=== PATIENT | male | born 1940 | race Caucasian/White ===

== ENCOUNTER 2020-04-12 08:19 | Outpatient (NON) | payer MEDICARE, OTHER, SELFPAY ==
[2020-04-13 13:10] LABS: SARS-CoV-2 RNA PCR Positive
== END 2020-04-12 08:20 ==
LOC: ANHCOVIDDT 08:21
PROVIDERS: PCP Family Medicine; Visit Provider Nurse Practitioner Family
DX: U07.1 COVID-19 (principal)
CPT/HCPCS: 87635; C9803; U0003

== ENCOUNTER 2020-08-11 14:43 | Outpatient (CLI) | payer MEDICARE, OTHER, SELFPAY | END 2020-08-11 14:44 | disposition home or self-care (01) | LOC: ANHCOVIDVC 14:43 | PROVIDERS: PCP Family Medicine | DX: Z23 Encounter for immunization (principal) | CPT/HCPCS: 0001A; 91300 ==

== ENCOUNTER 2020-09-01 14:32 | Outpatient (CLI) | payer MEDICARE, OTHER, SELFPAY | END 2020-09-01 14:33 | disposition home or self-care (01) | LOC: ANHCOVIDVC 14:32 | PROVIDERS: PCP Family Medicine | DX: Z23 Encounter for immunization (principal) | CPT/HCPCS: 0002A; 91300 ==

== ENCOUNTER 2021-08-11 10:03 | Emergency (ER) | payer MEDICARE, OTHER, SELFPAY ==
--- NOTE | ~2021-08-11 | XR_ITS ---
XR knee RT min 4V 08/11/2021 10:37 Indication: Right knee pain after recent fall Procedure: 4 views right knee Comparison: No prior studies for comparison. Findings: There is a right total knee arthroplasty. Prosthesis well seated. There are ossific densiti es anterior to the tibial component of the prosthesis seen on lateral view, suspicious for acute avul libby fracture. Large joint effusion. Impression: 1: Possible acute avulsion fracture anterior aspect of the tibia anterior to the prosthesis. 2: Large joint effusion. Reviewed, dictated and finalized at location A. /BAK[employer] ASSOCIATE Impression: 1: Possible acute avulsion fracture anterior aspect of the tibia anterior to th e prosthesis. 2: Large joint effusion.
[2021-08-11 10:18] VITALS: BP 129/67; PULSE 62; RESP 16; TEMP 36.8; O2SAT 100
[2021-08-11 10:22] VITALS: BP 129/67; PULSE 62; RESP 16; TEMP 36.8; O2SAT 100
--- NOTE | 2021-08-11 10:47 | ED.LOWEXIN ---
HPI - Extremity Injury (Lower) General Chief Complaint: Extremity Injury, Lower Stated Complaint: Right knee pain Time Seen by Provider: 08/11/21 10:47 Source: patient Mode of arrival: ambulatory Limitations: no limitations History of Present Illness HPI Narrative: 80 yo M presents with pain to R knee. hx of bilateral knee replacement. yesterday slipped on ice and fell straight down onto R knee . Using crutches from home. Called orthopedic office and not able to see him for several weeks. All systems reviewed and negative except as noted above. Related Data Allergies Allergy/AdvReac Type Severity Reaction Status Date / Time No Known Allergies Allergy Verified 08/11/21 10:21 Review of Systems Review of Systems: CONSTITUTIONAL: Denies fever, chills, or sweats. EYES: Denies visual changes, redness, or discharge. ENT: Denies rhinorrhea, congestion, sore throat, or otalgia. CARDIOVASCULAR: Denies chest pain, palpitations, or edema. RESPIRATORY: Denies cough or dyspnea. GASTROINTESTINAL: Denies abdominal pain, nausea, vomiting, or diarrhea. GENITOURINARY: Denies dysuria or hematuria. SKIN: Denies rash or itching. MUSCULOSKELETAL: Denies back pain, joint pain, or myalgia. Reports right knee pain and swelling. NEUROLOGIC: Denies headache, numbness, or weakness. PSYCHIATRIC: Denies anxiety or depression. All other systems reviewed are negative, except as documented in HPI. PMFSH Comments At time of signature, agree with nursing past medical, surgical, social and family history. There is no relevant family history pertinent to the presenting complaint. Exam Narrative: GENERAL: This is a well-nourished, well-developed patient, in no apparent distress. HEAD: normocephalic, atraumatic. EYES: PERRL. Sclera clear/white. Vision is grossly intact. EARS: External ears normal, auditory canals clear and without drainage, TMs normal without perforation. Hearing grossly intact. NOSE: External nose normal with no obvious nasal discharge, nares without redness, no rhinorrhea. THROAT: Mucous membranes moist, posterior pharynx clear. NECK: Neck supple, non-tender without lymphadenopathy, masses or thyromegaly. CARDIOVASCULAR: Regular rate and rhythm without murmurs, gallops, or rubs. RESPIRATORY: Clear to auscultation. Breath sounds equal bilaterally. No wheezes, rales, or rhonchi. GASTROINTESTINAL: Abdomen soft, non-tender, nondistended. Bowel sounds are active. No hepato-splenomegaly, or palpable masses. No guarding. SKIN: warm, Dry, intact with no suspicious lesions or rash, good texture and turgor. NEURO: awake, alert, and oriented to person, place and time. There were no obvious focal neurologic abnormalities. EXTREMITIES: No calf tenderness. Negative Homans sign bilaterally. Swelling to right knee with effusion. Tenderness to anterior aspect. BACK: Nontender without deformity. No CVA tenderness. Course Course Level of Care: Express Care Visit Vital Signs Vital signs: Vital Signs Temperature 36.8 C 08/11/21 10:18 Pulse Rate 62 08/11/21 10:18 Respiratory Rate 16 08/11/21 10:18 Blood Pressure 129/67 08/11/21 10:18 Pulse Oximetry 100 08/11/21 10:18 Temperature 36.8 C 08/11/21 10:22 Pulse Rate 62 08/11/21 10:22 Respiratory Rate 16 08/11/21 10:22 Blood Pressure 129/67 08/11/21 10:22 Pulse Oximetry 100 08/11/21 10:22 MDM - Extremity Injury (Lower) MDM Narrative Medical decision making narrative: Patient is aware of diagnosis, understands and agrees to treatment plan. Anticipatory guidance given. Patient agrees to follow-up as directed and is aware of reasons to seek care at the emergency department. Portions of this record may have been created with voice recognition software knee immobilizer placed by RN. distal NV intact after application. pt reported pain improved with immobilizer. pt has crutches from home. referred to orthopedics. pt aware he needs to call and schedule an appt. given radiology dis
--- NOTE | 2021-08-11 11:59 | PC.NURSE ---
KNEE IMMOBILIZER APPLY TO RIGHT KNEE. PATIENT STATED RIGHT KNEE FELT STABLE WITH IMMOBILIZER APPLIED
== END 2021-08-11 11:15 | disposition home or self-care (01) ==
PROVIDERS: Emergency Provider Nurse Practitioner Family
DX: S82.001A Unspecified fracture of right patella, initial encounter for closed fracture (principal); W01.0XXA Fall on same level from slipping, tripping and stumbling without subsequent striking against object, initial encounter; M25.461 Effusion, right knee; I10 Essential (primary) hypertension
CPT/HCPCS: 73564; 99213; 99214; G0463; L1830

== ENCOUNTER 2022-01-12 12:04 | Outpatient (CLI) | payer MEDICARE, OTHER, SELFPAY ==
[2022-01-12 12:44] LABS: Alanine Aminotransferase 22 U/L (6-50); Albumin Level 4.4 g/dL (3.5-5.1); Alkaline Phosphatase 99 U/L (38-126); Anion Gap 8 mmol/L (8-16); Aspartate Amino Transferase 27 U/L (17-59); Bilirubin,Total 0.6 mg/dL (0.2-1.3); Blood Urea Nitrogen 23 mg/dL (9-20); Calcium 9.6 mg/dL (8.4-10.2); Carbon Dioxide 30 mmol/L (22-30); Chloride 101 mmol/L (98-107); Cholesterol 135 mg/dL (0-200); Estimated Glomerular Filt Rate > 60; Glucose 93 mg/dL (65-110); HDL Direct 54 mg/dL; Potassium 4.6 mmol/L (3.4-5.0); Sodium 139 mmol/L (137-145); Triglycerides 97 mg/dL (<150)
[2022-01-12 12:56] LABS: LDL Cholesterol Direct 55 mg/dL
== END 2022-01-12 12:05 | disposition home or self-care (01) ==
LOC: ANHLAB 12:10
PROVIDERS: PCP Family Medicine; Visit Provider Internal Medicine Cardiovascular Disease
DX: I10 Essential (primary) hypertension (principal); E78.2 Mixed hyperlipidemia
CPT/HCPCS: 36415; 80053; 80061

== ENCOUNTER 2022-08-04 08:30 | Outpatient (CLI) | payer MEDICARE, OTHER, SELFPAY ==
--- NOTE | 2022-08-30 08:28 | WPDSLEEPSTUD ---
Sleep Study Date of Study: 08/04/22 Ordering Provider: Reese Gómez MD Interpreting Physician: Megan Quiros MD Sleep Study Type: CPAP Titration Height: 1.88 m Weight: 126.552 kg Body Mass Index: 35.8 Neck Circumference (inches): 18.5 [place]: 9 Reason for Sleep Study Obstructive sleep apnea on CPAP 16 cm Sleep History Ad Medellin is an 81-year-old man with obstructive sleep apnea dating back to 07/01/2006 with a sleep study at [facility] showing an AHI of 25 with optimal pressure of 10 cm. His tells him that he quits breathing during his sleep. HE does not wake at night feeling short of breath or wake with heartburn, belching or coughing. He does not snore using PAP. He rarely has trouble sleeping when he has a cold. He rarely sweats excessively at night. He does not notice his heart pounding or beating excessively at night. He frequently falls asleep in the day, rarely involuntarily and rarely while driving. He does not have loss of muscle tone with strong emotion, and does not feel afraid to go to sleep. Rarely has nightmares or racing thoughts. Rarely feels sad or depressed. Occasionally has anxiety.. Frequently he notices parts of his body jerking. He occasionally kicks at night, and occasionally has achy uncomfortable feelings in his legs. Denies morning jaw pain. Rarely grinds his teeth at night. Occasionally has pain in the day, never has pain at night. He always wakes up feeling stiff in the morning. Normal bedtime is 10:30 pm, wakes once at night to go urinate, returns to sleep within 15 minutes. He wakes in the morning at 5:30 am. He takes naps, and a short nap can be refreshing. He feels better in the afternoon or evening compared to the morning. Habits: No tobacco. Caffeine: 3 perday. Uses alcohol, not daily. [facility] Past Medical History Medical History Benign localized prostatic hyperplasia with lower urinary tract symptoms (LUTS) BMI 34.0-34.9,adult Cellulitis Chronic venous insufficiency Cough Diastolic dysfunction Heart murmur Intention tremor Mixed hyperlipidemia Numbness and tingling in both hands RENATO (obstructive sleep apnea) Rhinitis Surgical History Surgical History History of appendectomy History of bilateral knee replacement Family History Family History Sibling Patient's brother is in good health Family history of malignant neoplasm of breast in first degree relative Breast cancer Father Acute myocardial infarction, Onset Age: 60 Mother Family history of Alzheimer's disease, Onset Age: 80 Acute myocardial infarction Social History Social History Smoking status: Never smoker Second hand tobacco smoke exposure: Yes Alcohol intake: current Substance use: never Substance use type: does not use Lack of Transportation: No Lack of Food: Never True Current Housing: I Have Housing Concerned About Future Housing: No Difficulty Paying Gas/Electric Bills: YES Difficulty Paying for Meds: No Currently Unemployed: No Education: Associate Degree Difficulty w/ Childcare or Family Care: No Living arrangements: with family Occupation/Education: retired Additional occupation/education comments: [employer] Gender identity (if verbalized by the patient): Male Medications Home Medications Medication Instructions Recorded Confirmed Type atorvastatin 40 mg tablet 40 mg PO DAILY 05/15/19 07/27/22 History amlodipine 5 mg-benazepril 20 mg 1 cap PO DAILY 07/23/21 07/27/22 History capsule aspirin 81 mg chewable tablet 81 mg PO DAILY 07/23/21 07/27/22 History (Juan M Chewable Low Dose Aspirin) magnesium oxide 200 mg PO DAILY 07/23/21 07/27/22 History mecobalam
[2022-09-01 17:13] VITALS: BMI 35.8
== END 2022-08-05 06:21 | disposition home or self-care (01) ==
LOC: ANHCSM 08:31
PROVIDERS: PCP Family Medicine; Visit Provider Internal Medicine Pulmonary Disease
DX: G47.33 Obstructive sleep apnea (adult) (pediatric) (principal)
CPT/HCPCS: 95811

== ENCOUNTER 2022-10-02 06:35 | Outpatient (CLI) | payer MEDICARE, OTHER, SELFPAY ==
[2022-10-02 06:55] LABS: Basophils Percent Auto 0.5 % (0.2-1.2); Eosinophils Absolute Auto 0.4 K/mm3 (0-0.3); Eosinophils Percent Auto 6.1 % (0-4.4); Hematocrit 40.9 % (42.0-52.0); Hemoglobin 13.4 g/dL (14.0-18.0); Immature Granulocyte Absolute 0.02 K/mm3 (0.00-0.031); Immature Granulocyte Percent A 0.3 % (0-0.5); Lymphocytes Absolute Auto 1.71 K/mm3 (0.9-3.2); Mean Corpuscular HGB Conc 32.8 g/dl (32-36); Mean Corpuscular Hemoglobin 28.3 pg (26-34); Mean Corpuscular Volume 86.3 fl (80-100); Mean Platelet Volume 9.8 fl (7.4-10.4); Monocytes Absolute Auto 0.5 K/mm3 (0.1-0.6); Monocytes Percent Auto 8.7 % (2.6-8.5); Neutrophils Absolute Auto 3.3 K/mm3 (1.3-6.7); Neutrophils Percent Auto 55.4 % (45.5-73.1); Platelet Count Result 248 k/mm3 (150-375); Red Blood Count 4.74 M/mm3 (4.6-6.20); Red Cell Distribution Width 13.5 % (11.5-14.5); White Blood Count 5.9 K/mm3 (4.5-10.0)
[2022-10-02 07:06] LABS: Alanine Aminotransferase 25 U/L (6-50); Albumin Level 4.1 g/dL (3.5-5.1); Alkaline Phosphatase 86 U/L (38-126); Anion Gap 2 mmol/L (8-16); Aspartate Amino Transferase 25 U/L (17-59); Bilirubin,Total 0.8 mg/dL (0.2-1.3); Blood Urea Nitrogen 23 mg/dL (9-20); Calcium 8.9 mg/dL (8.4-10.2); Carbon Dioxide 37 mmol/L (22-30); Chloride 103 mmol/L (98-107); Cholesterol 137 mg/dL (0-200); Estimated Glomerular Filt Rate > 60; Glucose 91 mg/dL (65-110); HDL Direct 48 mg/dL; Potassium 4.7 mmol/L (3.4-5.0); Sodium 142 mmol/L (137-145); Triglycerides 70 mg/dL (<150)
[2022-10-02 07:16] LABS: LDL Cholesterol Direct 66 mg/dL
== END 2022-10-02 06:36 | disposition home or self-care (01) ==
PROVIDERS: PCP Family Medicine; Visit Provider Family Medicine
DX: E78.2 Mixed hyperlipidemia (principal); I51.89 Other ill-defined heart diseases; Z13.220 Encounter for screening for lipoid disorders
CPT/HCPCS: 36415; 80053; 80061; 82248; 84443; 85025

== ENCOUNTER 2022-11-10 10:58 | Outpatient (CLI) | payer MEDICARE, OTHER, SELFPAY ==
--- NOTE | 2022-11-16 12:59 | WPDHOLTEREM ---
Holter/Event Monitor Holter/Event Monitor Date of procedure: 11/16/22 Holter/Event Procedure: 48 Hr Holter Monitor Diagnosis: Tachycardia Indications: Tachycardia Image/Tracing Quality: Adequate. Total analysis time is 47 hours and 59 minutes. Findin. Predominant rhythm is sinus rhythm with an average heart rate of 68bpm. The minimum heart rate was 40bpm, and the maximum heart rate was 133bpm. 2. No evidence of atrial fibrillation, pauses or heart block 3. PAC burden is 0.9%. 4. PVC burden is 2.4%. 5. There were 2 episodes of SVT. The longest episode consisted of 11 beats at a rate of 158bpm. The fastest run consisted of 7 beats at a rate of 160bpm. 6. There was 1 episode of non-sustained ventricular tachycardia consisting of 19 beats. 7. No patient reported symptoms.
== END 2022-11-10 10:59 | disposition home or self-care (01) ==
LOC: ANHCARD 10:59
PROVIDERS: PCP Family Medicine; Visit Provider Family Medicine
DX: I51.89 Other ill-defined heart diseases (principal); R00.0 Tachycardia, unspecified
CPT/HCPCS: 93225; 93226

== ENCOUNTER 2023-02-23 00:15 | Day surgery (SDC) | payer MEDICARE, OTHER, SELFPAY ==
[2023-02-23] VITALS (10 sets, daily range): BP systolic 110–137; BP diastolic 51–69; PULSE 42–54; RESP 12–16; TEMP 36.6–36.8; O2SAT 92–100; BMI 32.5
[2023-02-23 07:40] LABS: Anion Gap 5 mmol/L (8-16); Blood Urea Nitrogen 24 mg/dL (9-20); Calcium 9.2 mg/dL (8.4-10.2); Carbon Dioxide 29 mmol/L (22-30); Chloride 107 mmol/L (98-107); Estimated CRCL calculation 75 ml/min; Estimated Glomerular Filt Rate > 60; Glucose 95 mg/dL (65-110); Potassium 4.3 mmol/L (3.4-5.0); Sodium 141 mmol/L (137-145)
[2023-02-23 07:41] LABS: INR 1.1; Prothrombin Time 14.3 Seconds (11.1-14.7)
[2023-02-23 07:59] LABS: Basophils Percent Auto 0.4 % (0.2-1.2); Eosinophils Absolute Auto 0.2 K/mm3 (0-0.3); Eosinophils Percent Auto 4.2 % (0-4.4); Hematocrit 38.7 % (42.0-52.0); Hemoglobin 12.6 g/dL (14.0-18.0); Immature Granulocyte Absolute 0.01 K/mm3 (0.00-0.031); Immature Granulocyte Percent A 0.2 % (0-0.5); Lymphocytes Absolute Auto 1.36 K/mm3 (0.9-3.2); Lymphocytes Percent Auto 26.2 % (18.3-44.2); Mean Corpuscular HGB Conc 32.6 g/dl (32-36); Mean Corpuscular Hemoglobin 28.8 pg (26-34); Mean Corpuscular Volume 88.4 fl (80-100); Mean Platelet Volume 10.3 fl (7.4-10.4); Monocytes Absolute Auto 0.4 K/mm3 (0.1-0.6); Monocytes Percent Auto 8.1 % (2.6-8.5); Neutrophils Absolute Auto 3.2 K/mm3 (1.3-6.7); Neutrophils Percent Auto 60.9 % (45.5-73.1); Platelet Count Result 225 k/mm3 (150-375); Red Blood Count 4.38 M/mm3 (4.6-6.20); Red Cell Distribution Width 12.7 % (11.5-14.5); White Blood Count 5.2 K/mm3 (4.5-10.0)
--- NOTE | 2023-02-23 08:04 | WPDHPUPDATE1 ---
History and Physical Update Update Date/Time: 02/23/23 08:04 82-year-old male with history of diastolic dysfunction, hypertension, edema, hyperlipidemia, aortic root dilatation, sleep apnea family history of CAD who is here for heart catheterization. The patient has found a great deal difficulty with exertional intolerance and GALICIA. No typical angina. His stress test however showed he could exercise for only 3 minutes before stopping because of shortness of breath. He had no definite fixed or reversible defects but had transient ischemic dilatation of the heart which can be seen with multivessel CAD, and also and ejection fraction 45%. History and Physical has been reviewed, including an updated exam of the patient. There are NO changes in the patient's condition. Risks, benefits, and alternatives have been discussed and questions answered. Reviewed possible risks and complications with patient including breathing problems, bleeding problems, blood vessel problems, unanticipated surgery, allergic reactions, kidney problems, CVA, OK, and among others. Discussed possibility of stenting and possible need for DAPT. Discussed the possibility that if DAPT is interrupted stent thrombosis can occur resulting in heart attack and . Patient understands risks and desires to proceed. Patient agrees to proceed with procedure.
--- NOTE | 2023-02-23 08:07 | WPDMODSED ---
Moderate Sedation Note-Pt Data Patient Data Diagnosis: Abnormal stress test, exertional intolerance and GALICIA. Present Complaint: 82-year-old male with history of diastolic dysfunction, hypertension, edema, hyperlipidemia, aortic root dilatation, sleep apnea family history of CAD who is here for heart catheterization. The patient has found a great deal difficulty with exertional intolerance and GALICIA. No typical angina. His stress test however showed he could exercise for only 3 minutes before stopping because of shortness of breath. He had no definite fixed or reversible defects but had transient ischemic dilatation of the heart which can be seen with multivessel CAD, and also and ejection fraction 45%. Procedure to be performed/Plan: Conscious sedation Left heart catheterization Possible PCI Allergies Allergy/AdvReac Type Severity Reaction Status Date / Time No Known Allergies Allergy Verified 01/25/23 15:33 Home Medications Medication Instructions Recorded Confirmed Type atorvastatin 40 mg tablet 40 mg PO DAILY 05/15/19 02/23/23 History amlodipine 5 mg-benazepril 20 mg 1 cap PO DAILY 07/23/21 02/23/23 History capsule aspirin 81 mg chewable tablet 81 mg PO DAILY 07/23/21 02/23/23 History (Juan M Chewable Low Dose Aspirin) mecobalamin (vitamin B12) 5,000 5,000 mcg PO DAILY 07/23/21 02/23/23 History mcg disintegrating tablet oxybutynin chloride 5 mg tablet 5 mg PO DAILY 10/01/22 02/23/23 History Current Medications: Active Medications Sodium Chloride (Normal Saline Iv) 500 mls @ 100 mls/hr IV CONT .Q5H PATY Sedation/Anesthesia: No previous sedation/anesthesia problems (including family history). [facility] Past Medical History Medical History Benign localized prostatic hyperplasia with lower urinary tract symptoms (LUTS) BMI 33.0-33.9,adult BMI 34.0-34.9,adult Cellulitis Chronic venous insufficiency Cough Diastolic dysfunction Dilated aortic root Heart murmur Intention tremor Mixed hyperlipidemia Numbness and tingling in both hands RENATO (obstructive sleep apnea) Rhinitis Tachycardia Surgical History Surgical History History of appendectomy History of bilateral knee replacement Family History Family History Sibling Patient's brother is in good health Family history of malignant neoplasm of breast in first degree relative Breast cancer Father Acute myocardial infarction, Onset Age: 60 Mother Family history of Alzheimer's disease, Onset Age: 80 Acute myocardial infarction Social History Social History Smoking status: Never smoker Second hand tobacco smoke exposure: Yes Alcohol intake: current Alcohol use details: 1 beer/month Substance use: never Substance use type: does not use Lack of Transportation: No Lack of Food: Never True Current Housing: I Have Housing Concerned About Future Housing: No Difficulty Paying Gas/Electric Bills: YES Difficulty Paying for Meds: No Currently Unemployed: No Education: Associate Degree Difficulty w/ Childcare or Family Care: No Living arrangements: with family Occupation/Education: retired 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 2+ dorsalis pedis pulses, absent posterior tibials) and Skin Hours since solid foods: 12 Hours since liquid intake: 12 Mallampati Classification: class III
--- NOTE | 2023-02-23 09:19 | PM.OP ---
Procedure Note - Brief Procedure Note - Brief Date of procedure: 02/23/23 Abnormal Stress Test, GALICIA Post-op diagnosis: Other (cardiomyopathy) Procedure performed: Left heart catheterization Selective coronary angiography Left ventriculography Angiography right common femoral artery Surgeon: Darlene Agustin MD Findings: Mild luminal irregularities, 50-60% stenosis of the ramus Mild to moderate global hypokinesis, EF 45% Description of procedure: Uneventful left heart catheterization Complications: No immediate complications Condition: Stable Disposition: Observation
--- NOTE | 2023-02-23 09:21 | WPDCARDPROC ---
Cardiac Cath Procedure Note Date of procedure:: 02/23/23 Performing physician:: Darlene Agustin MD Indication:: GALICIA, abnormal stress test Brief clinical history:: 82-year-old male with history of diastolic dysfunction, hypertension, edema, hyperlipidemia, aortic root dilatation, sleep apnea family history of CAD who is here for heart catheterization.? The patient has found a great deal difficulty with exertional intolerance and GALICIA.? No typical angina.? His stress test however showed he could exercise for only 3 minutes before stopping because of shortness of breath.? He had no definite fixed or reversible defects but had transient ischemic dilatation of the heart which can be seen with multivessel CAD, and also and ejection fraction 45%. Procedure Procedure performed:: Procedure: 1. Conscious sedation 2. Left heart catheterization 3. Selective Coronary angiography 4. Left ventriculograph 5. Angiography of the right common femoral artery Sedation/Medication given:: Conscious sedation: The patient has no known prior history of adverse affects of conscious sedation. Oropharynx was clear. The patient is deemed a good candidate for conscious sedation. Conscious sedation began at: 8:48 a.m. Conscious sedation ended at: 9:10 a.m. Total conscious sedation time: 22 minutes Medications: Versed 2 mg , fentanyl 50 mcg IV push The patient had continuous hemodynamic monitoring, and was also continuously monitored by: Eric Johnson RN The patient tolerated conscious sedation well. Access site:: Right femoral artery Procedure note:: Site: Right femoral artery Catheters: 5 Palauan arterial sheath, 5 Palauan 4 cm right and left Perico catheters, 5 Palauan pigtail catheter Detailed procedure: After informed consent the patient brought to the pathology laboratory aides teacher and the right femoral area was prepped and draped in the usual fashion. After conscious sedation and local anesthesia the right femoral artery was punctured and cannulated with the arterial sheath. Selective Coronary angiography was performed with the coronary catheters in multiple projections. These were withdrawn. The pigtail catheter was advanced into the central circulation and left ventricle for pressure measurements and left ventriculography which was performed in the MORELAND projection. This was withdrawn. angiography the right common femoral artery is performed and the arterial sheath was not suitable position for a vascular closure device. Then the arterial sheath was removed and hemostasis was obtained using Angio-Seal vascular closure device. The patient tolerated the procedure well with no complications. Estimated blood loss was negligible. Findings:: Pressures: Aortic pressure 115/ 50 mmHg LV pressure: 115 /19 mmHg Left coronary artery: The left main was patent. The Left anterior descending trifurcated and there were mild luminal irregularities. The ramus intermedius had a 50-60% stenosis. Right coronary artery: Right coronary artery was widely patent minimal luminal irregularities. Left ventriculogram: Mild to moderate global hypokinesis, EF 45% Conclusion:: Moderate coronary artery disease Cardiomyopathy, with [id number] global left ventricular dysfunction Assessment and Plan Assessment and plan (1) Cardiomyopathy: Code(s): I42.9 - Cardiomyopathy, unspecified Status: Acute (2) CAD (coronary artery disease): Code(s): I25.10 - Atherosclerotic heart disease of [place] coronary artery without angina pectoris Status: Acute Plan Medical therapy. Continue ASA and atorvastatin. Change amlodipine/benazepril to: Losartan 50 mg daily, titrate as an outpatient. Add spironolactone 25 mg daily Hesitant add a beta-jasmin at this time is the patient's resting heart rate is 47 beats per minute BMP in 3 weeks Office visit in the next 1-2 months
== END 2023-02-23 13:20 | disposition home or self-care (01) ==
PROVIDERS: PCP Family Medicine; Visit Provider Internal Medicine Cardiovascular Disease
PROC: 4A023N7 Measurement of Cardiac Sampling and Pressure, Left Heart, Percutaneous Approach (ICD-10-PCS; CPT 93452; principal; 2023-02-23 08:30)
DX: I42.9 Cardiomyopathy, unspecified (principal); I25.10 Atherosclerotic heart disease of native coronary artery without angina pectoris; R94.39 Abnormal result of other cardiovascular function study; R06.09 Other forms of dyspnea; I11.9 Hypertensive heart disease without heart failure; E78.2 Mixed hyperlipidemia; G47.30 Sleep apnea, unspecified; I87.2 Venous insufficiency (chronic) (peripheral); N40.1 Benign prostatic hyperplasia with lower urinary tract symptoms; Z79.82 Long term (current) use of aspirin
CPT/HCPCS: 36415; 80048; 85025; 85610; 93458; C1760; C1887; C1894; G0269; J1644; J2250; J3010; J7040

== ENCOUNTER 2023-03-08 08:12 | Outpatient (CLI) | payer MEDICARE, OTHER, SELFPAY ==
--- NOTE | 2023-03-31 15:46 | WPDSLEEPSTUD ---
Sleep Study Date of Study: 03/08/23 Ordering Provider: Tenzin Eason Interpreting Physician: Megan Quiros MD Sleep Study Type: Polysomnogram Height: 1.88 m Weight: 108.862 kg Body Mass Index: 30.8 Neck Circumference (inches): 17 [place]: 11 Reason for Sleep Study 2006 diagnosis of obstructive sleep apnea, difficulty tolerating CPAP; has tried oral appliance and has had a tonsillectomy. Sleep History Ad Medellin is an 82-year-old man with a history of sleep apnea diagnosed in 2006. His initial study was at [facility], he started using CPAP. He has tried an oral appliance, and has had a tonsillectomy. He cotinues to have problems with elio leaks, and this makes using CPAP difficult, although he does get relief from using PAP therapy. He is considering Inspire, hypoglossal nerve stimulator, because his CPAP mask leaks so much. He has tried several different masks. He never awakens from sleep feeling short of breath. He rarely wakes at night with heartburn, belching or coughing.??He never snores, never snores loudly enough that others complain. He rarely has trouble sleeping when he has a cold. He never wakes up gasping for breath during the night. He rarely has breathing problems at night. He rarely sweats excessively at night. He never notices his heart pounding or beating irregularly during the night. He frequently falls asleep during the day. He occasionally falls asleep involuntarily, rarely falls asleep while driving. He rarely experiences loss of muscle tone with strong emotion. He occasionally has daytime difficulties due to excessive sleepiness. He never feels paralyzed on waking or falling asleep. He never experiences vivid dreams upon waking or falling asleep. He never feels afraid of going to sleep. He rarely has nightmares. He rarely recalls his dreams. He occasionally has thoughts racing through his mind. He rarely feels sad or depressed. He occasional feels anxiety. He frequently notices parts of his body jerk. He frequently kicks during the night. He frequently feels crawling or aching feelings in his legs. He frequently feels leg pain at night. He never has morning jaw pain, frequently grinds his teeth at night. He frequently feels bothered by pain during the day, rarely awakened by pain during the night. He occasional wakes up feeling stiff in the morning, and he occasional wakes feeling sore or achy in the morning, rarely wakes with pain in his neck, spine, or joints. he reports a 35 lb weight loss this year. Normal bedtime is 10:00 p.m., usually falling asleep within 45 minutes. He typically wakes between 4 and 5 times during the night, sometimes to urinate, and it takes him about 5 minutes to return to sleep. His wake up time is 6:00 a.m. He keeps the same schedule on weekends. He estimates getting 8 hours of sleep at night. He takes naps in the afternoon or evening. A short nap lasting 10 or 15 minutes may be refreshing. He feels better in the morning compared to other times of day. Habits:??Tobacco: never used tobacco. Caffeine: 16 oz per day . Alcohol:none Recreational substances: none PMFSH Past Medical History Medical History Benign localized prostatic hyperplasia with lower urinary tract symptoms (LUTS) BMI 33.0-33.9,adult BMI 34.0-34.9,adult CAD (coronary artery disease) Cardiomyopathy Cellulitis Chronic venous insufficiency Cough Diastolic dysfunction Dilated aortic root Heart murmur Intention tremor Mixed hyperlipidemia Numbness and tingling in both hands RENATO (obstructive sleep apnea) Rhinitis Tachycardia Surgical History Surgical History History of appendectomy History of bilateral knee replacement Family History Family History Sibling Patient's brother is in good health Family history of malignant neoplasm
[2023-03-31 16:17] VITALS: BMI 30.8
== END 2023-03-09 07:34 | disposition home or self-care (01) ==
LOC: ANHCSM 08:14
PROVIDERS: PCP Family Medicine
DX: G47.33 Obstructive sleep apnea (adult) (pediatric) (principal); G47.61 Periodic limb movement disorder
CPT/HCPCS: 95810

== ENCOUNTER 2023-08-11 14:49 | Outpatient (CLI) | payer MEDICARE, OTHER, SELFPAY ==
--- NOTE | ~2023-08-11 | CT_ITS ---
CT Scan of the Chest without Contrast: Clinical Indication: Pulmonary nodule Technique: Contiguous sections were acquired throughout the chest without intravenous contrast. Dose reduction technique was used on this scan by utilizing automated exposure control and iterative recon struction technique. The dose-length product (DLP) was 238.61 mGy-cm. Findings: There is no evidence of any significant mediastinal, hilar or axillary lymphadenopathy. Aberrant righ t subclavian artery noted. There is no evidence of pleural or pericardial effusion. The lungs are clear. No pulmonary nodules or infiltrates are noted. Images through the upper abdomen reveal numerous gallstones. There is DISH of the thoracic spine. Impression: No pulmonary abnormality seen. Cholelithiasis. Reviewed, dictated and finalized at [facility]. STRY NP Impression: No pulmonary abnormality seen. Cholelithiasis.
== END 2023-08-11 14:50 | disposition home or self-care (01) ==
LOC: ANHIMG 14:52
PROVIDERS: PCP Family Medicine; Visit Provider Family Medicine
DX: R91.1 Solitary pulmonary nodule (principal)
CPT/HCPCS: 71250

== ENCOUNTER 2024-05-25 13:00 | Outpatient (CLI) | payer MEDICARE, OTHER, SELFPAY ==
--- NOTE | ~2024-05-25 | XR_ITS ---
EXAMINATION: XR chest 2V 05/25/2024 13:22 INDICATION: Shortness of breath PROCEDURE: 2 view chest COMPARISON: Comparison to multiple prior studies sequentially, with oldest reviewed study dated 08/21.. FINDINGS: The lungs are clear. The cardiomediastinal silhouette is within normal limits. There are no pleural effusions. There is no pneumothorax suspected. There is a battery pack with stimulator l ead extending into the neck. The lungs are hyperinflated which is consistent with, but not diagnostic of chronic obstructive pulmonary disease. IMPRESSION: 1: NO ACUTE CARDIOPULMONARY DISEASE. Reviewed, dictated and finalized at location B. ICULTURAL FARMER
--- OUTSIDE RECORDS SUMMARY | 2024-05-25 13:17 | XMS_ITS | Continuity of Care Document ---
Author Name [facility] Organization [facility] Care Team Providers Care Extension Worker Name Role Phone [facility] Unavailable Unavailable Problems Combined list of problems from [facility] facilities. It does not include entries that were removed or entered in error. Problem Status Onset Date Problem Type Date of Resolution Comments Source HTN - Hypertension ([facility] [id number]) Active Condition [facility] Hyperlipidemia ([facility] [id number]) Active Condition [facility] Obstructive Sleep Apnea of Adult ([facility] [id number]) Active Condition [facility] Pain of left hand Active Condition [facility] Pain of right shoulder joint Active Condition [facility] Urge incontinence of urine Active Condition [facility] Diagnosis: ICD-10-CM Z00.01 Encounter for general adult medical exam w abnormal findings Active Diagnosis [facility] Diagnosis: ICD-10-CM Z79.899 Other custodial (current) drug therapy Active Diagnosis [facility] Medications Combined list of outpatient medications from [facility] and [facility] facilities.Medications provided include 1) outpatient medications from the last 15 months, and 2) patient-reported medications. Medication Details Route Status Patient Instructions Prescription Expires Prescription Number Last Dispense Date Ordering Provider Order Date Order Qty Source ASPIRIN 81MG TAB,CHEWABL E CHEW AND SWALLOW ONE TABLET BY MOUTH ONCE A DAY ORAL ACTIVE MJ FIELDSIN B 2022 [facility] ATORVASTATI N CA 80MG TAB TAKE ONE-HALF TABLET BY MOUTH EVERY EVENING ORAL ACTIVE CAGUITLAMJIN B 2022 [facility] CYANOCOBALA MIN 500MCG TAB TAKE ONE TABLET BY MOUTH ONCE A DAY ORAL ACTIVE CAGUITTRACY NAE B 2022 [facility] DICLOFENAC NA 1% GEL,TOP APPLY 2 GM TO AFFECTED AREA(S) FOUR TIMES A DAY NEEDED DO NOT EXCEED MORE THAN 16 GRAMS DAILY TO ANY LOWER EXTREMIT Y JOINT. NOT MORE THAN 8 GRAMS DAILY TO ANY UPPER EXTREMIT Y JOINT. MAX 32GM/DAY OVER ALL JOINTS. (MEASURE DOSE WITH RULER ATTACHED INSIDE BOX) TOPICA L ACTIVE 06/14/2024 [id number] DANIEL FRANCISCO 2023 100 [facility] Diclofenac Sodium 0.01mg/mg, Gel/Jelly, Topical APPLY 2 GM TO AFFECTED AREA(S) FOUR TIMES A DAY NEEDED DO NOT EXCEED MORE THAN 16 GRAMS DAILY TO ANY LOWER EXTREMIT Y JOINT. NOT MORE THAN 8 GRAMS DAILY TO ANY UPPER EXTREMIT Y JOINT. MAX 32GM/DAY OV Active 06/14/2024 [id number] DANIEL FRANCISCO 2023 100 [facility] IBUPROFEN (ibuprofen) , 600 MG, TABLET, ORAL, AUROBINDO PHARM, 500 ea. BOTTLE Active [id number] 4 2023 42 Pharmac y Data Transac tion Service Facilit y LOSARTAN POTASSIUM (losartan potassium), 50 MG, TABLET, ORAL, NOVADOZ PHARMAC, 90 ea. BOTTLE Cancele d [id number] : 2023 0 Pharmac y Data Transac tion Service Facilit y LOSARTAN POTASSIUM (losartan potassium), 50 MG, TABLET, ORAL, XLCARE PHARMACE, 90 ea. BOTTLE Active [id number] 2022 90 Pharmac y Data Transac tion Service Facilit y LOSARTAN POTASSIUM (losartan potassium), 50 MG, TABLET, ORAL, XLCARE PHARMACE, 90 ea. BOTTLE Active [id number] 2023 90 Pharmac y Data Transac tion Service Facilit y LOSARTAN POTASSIUM 100MG TAB TAKE ONE-HALF TABLET BY MOUTH ONCE A DAY ORAL ACTIVE NAE FIELDS 2022 [facility] OXYBUTYNIN CL 15MG TAB,SA TAKE ONE TABLET BY MOUTH ONCE A DAY ORAL ACTIVE NAE FIELDS B 2022 [facility] OXYCODONE HCL (OXYCODONE HCL), 5MG, TABLET, ORAL, [employer] 100 ea. BOTTLE Active [id number] 2023 15 Pharmac y Data Transac tion Service Facilit y SPIRONOLACT ONE (SPIRONOLAC TONE), 25 MG, TABLET, ORAL, AMNEAL PHARMACE, 100 ea. BOTTLE Active [id number] 2023 30 Pharmac y Data Transac tion Service Facilit y SPIRONOLACT ONE (spironolac tone), 25 MG, TABLET, ORAL, CAREN [employer]CH [place], 100 ea. BOTTLE Active [id number] 4 2023 90 Pharmac y Data Transac tion Service Facilit y SPIRONOLACT ONE (SPIRONOLAC TONE), 25MG, TABLET, ORAL, [employer], 1000 ea. BOTTLE Active [id number] 3 2022 90 Pharmac y Data Transac tion Service Facilit y SPIRONOLACT ONE 25MG TAB TAKE ONE TABLET BY MOUTH ONCE A DAY ORAL ACTIVE NAE FIELDS 2022 [facility] Immunizations Combined list of available immunizations from the Department of Defense and Veterans Affairs facilities. Immunization Series Date Given Administered By Site Reaction Lot Number CVX Code Drug Reference Investigator Status Comments Source INFLUENZA, UNSPECIFIED FORMULATION 2022 88 complet ed [facility] COVID-19, mRNA, LNP-S, PF, 30 mcg/0.3 mL dose 2020 LUCILLEYakimbi [place] (PFR) Not Given COVID-19, mRNA, LNP-S, PF, 30 mcg/0.3 mL dose [facility] Vital Signs Combined list of inpatient and outpatient Vital Signs from Department of Defense and Veterans Affairs, ranging from 12 months to all on record, depending upon the facility. Vital Sign Value Date Comments Source SYSTOLIC BLOOD PRESSURE 116 06/10/2023 12:26:05 [facility] DIASTOLIC BLOOD PRESSURE 70 06/10/2023 12:26:05 [facility] PULSE OXIMETRY 97% 06/10/2023 12:26:05 [facility] WEIGHT 253 06/10/2023 12:26:05 [facility] PAIN 0 06/10/2023 12:26:05 [facility] TEMPERATURE 98.5 06/10/2023 12:26:05 [facility] PULSE 61 06/10/2023 12:26:05 [facility] RESPIRATION 20 06/10/2023 12:26:05 [facility] Encounters Combined list of: 1) Encounters from Department of [facility] Affairs facilities going back up to thelast 18 months. 2) Encounters from the Department of Defense facilities going back up to 280 months. Location Location Details Encounter Type Encounter Number Reason For Visit Attending Provider ADM Date DC Date Status Disposition Source [address] [place] [address] David REMY [place]Opt [place]metry[place] OUTPATIENT [id number] Notes Entered by: HELIO CRESPO 17 Aug 2019 1333 ------- ------- ------- ------- -- Glasses Ordered HELIO CRESPO 08/16 Released w/o Limitations [address] [place] [address] David REMY [place] [place] [facility] Outpatient Encounter [id number] 03/13 [facility] Encounter [id number] 06/08 [facility] BY PHARM ADDL 15 MIN [id number] Diagnos is: ICD-10- CM Z79.899 Other terminal worker (curren t) drug therapy
Royce FIELDS 06/09 [facility] OFFICE O/P EST LOW 20-29 MIN [id number] Diagnos is: ICD-10- CM Z00.01 Encount er for general adult medical exam w abnorma l finding s
Abhay FRANCISCO 06/10 [facility] Outpatient Encounter [id number] 12/05 [facility] Encounter [id number] 12/06 [facility] Procedures Combined list of: 1) Procedures from Department of Veterans Affairs facilities going back up to thelast 18 months, not all VA non-surgical procedures are included; 2) All procedures from the Department of Defense facilities. Procedure Procedure Type Code Date Perfomer Comments Sania peoples Spectacles Services Fitting Monofocal Except For Aphakia Spectacles Services Fitting Monofocal Except For Aphakia [id number] HELIO CRESPO DoD FITTING OF SPECTACLES, EXCEPT FOR APHAKIA; MONOFOCAL 08/17/2019 DoD Social History Combined list of available smoking, tobacco, and other social history from Department of Defense and Veterans Affairs facilities. Social History Type Response Date Comment Sania peoples Tobacco smoking status [facility] NEVER USED 06/10/2023 [facility] This section is an empty social history section. DoD
== END 2024-05-25 13:01 | disposition home or self-care (01) ==
PROVIDERS: PCP Family Medicine; Visit Provider Nurse Practitioner Adult Health
DX: R06.02 Shortness of breath (principal); R05.9 Cough, unspecified
CPT/HCPCS: 71046

== ENCOUNTER 2024-08-14 08:32 | Outpatient (CLI) | payer MEDICARE, OTHER, SELFPAY | END 2024-08-14 08:33 | disposition home or self-care (01) | LOC: ANHNEURO 08:33 | PROVIDERS: PCP Family Medicine; Visit Provider Family Medicine | DX: G56.23 Lesion of ulnar nerve, bilateral upper limbs (principal); G56.03 Carpal tunnel syndrome, bilateral upper limbs; M54.2 Cervicalgia | CPT/HCPCS: 95886; 95911 ==

== ENCOUNTER 2025-01-25 11:18 | Outpatient (CLI) | payer MEDICARE, OTHER, SELFPAY ==
--- OUTSIDE RECORDS SUMMARY | 2025-01-25 11:22 | XMS_ITS | Clinical Summary ---
Author Organization [facility] Address [facility]ly [facility] [place] [address] Care Team Providers Care Paginator Name Role Phone Unavailable Primary Care Provider Unavailabl e Social History Tobacco Use Types Packs/Day Years Used Date Smoking Tobacco: Never Assessed Sex and Gender Information Value Date Recorded Sex Assigned at Not on file Legal Sex Male 4:43 PM CDT Gender Identity Not on file Sexual Orientation Not on file Plan of Treatment Health Maintenance Due Date Last Done Comments DTaP, Tdap and Td Vaccines ( 1 - Tdap) [birth year]09/1959 Pneumococcal Vaccine: 50+ Ye ars (1 of 1 - PCV) 1990 Zoster Vaccines (1 of 2) 1990 RSV Immunization or 60+ Years (1 - 1-dose 75+ series) 12/09/2015 COVID-19 Vaccine ( - 2023-2 5 season) 2024 Meningococcal B Vaccine Aged Out No l onger eligible based on patient's age to complete this topic Meningococcal Vaccine Aged Out No addy padmaja eligible based on patient's age to complete this topic RSV Immunizations Under 20 Months Aged Out No longer eligible based on patient's age to complete this topic
--- OUTSIDE RECORDS SUMMARY | 2025-01-25 11:22 | XMS_ITS | Clinical Summary ---
Author Organization [facility] [address] Address [address] [place] [address] Care Team Providers Care Food Mixer Name Role Phone Lukasz Goldman MD Primary Care Provider [phone] Allergies No known active allergies Medications oxyBUTYnin XL (DITROPAN XL) 15 mg 24 hr tabletIndications :Bladder Hyperactivity,Inc reased Urinary Frequency,Urinary Urge Incontinence,Urin li Urgency Take 1 tablet (15 mg total) by mouth every morning 12/02/19 23 Active aspirin 81 mg enteric coated tabletIndications :prevention of thrombosis,primar y prevention Take 1 tablet (81 mg total) by mouth every morning Active cyanocobalamin, vitamin B-12, 5,000 mcg tablet, sublingualIndicat ions:Prevention of Vitamin B12 Deficiency [address] 5,000 mcg under the tongue every morning Active losartan (COZAAR) 50 mg tablet TAKE 1 TABLET EVERY MORNING 90 tablet 1 07/10/19 25 Active atorvastatin (LIPITOR) 40 mg tabletIndications :Mixed hyperlipidemia TAKE 1 TABLET DAILY 90 tablet 3 01/02/20 25 Active spironolactone (ALDACTONE) 25 mg tablet TAKE 1 TABLET EVERY MORNING 90 tablet 3 01/08/20 25 Active diclofenac sodium (VOLTAREN) 1 % gelIndications:Os teoarthritis Apply 2 g topically as needed (shoulder pain) 06/14/19 24 2024 Discontinued oxyCODONE (ROXICODONE) 5 mg immediate release tabletIndications :Pain Take 1 tablet (5 mg total) by mouth every 4 (four) hours as needed for pain 15 tablet 07/22/19 24 2024 Discontinued vibegron (Gemtesa) 75 mg tablet Take 75 mg by mouth daily 2024 Discontinued(P atient Reported) atorvastatin (LIPITOR) 40 mg tabletIndications :Mixed hyperlipidemia TAKE 1 TABLET DAILY 90 tablet 3 01/27/20 24 2024 Discontinued spironolactone (ALDACTONE) 25 mg tablet TAKE 1 TABLET EVERY MORNING 90 tablet 1 07/10/19 25 2024 Discontinued Active Problems Problem Noted Date Diagnosed Date Systolic dysfunction 12/29/2023 Coronary artery disease invo lving la posta coronary artery 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 Lower extremity edema 07/18/2017 Assessment & Plan (07/18/2017 8:45 PM SINKER PULLER): Though the patient has diastolic dysfunction he does not have any GALICIA to suggest diastolic heart failure. The lower extremity edema may be simply dependent edema, or may relate to his sleep apnea and modest pulmonary hypertension. Murmur, heart 07/18/2017 Assessment & Plan (07/18/2017 8:46 PM SINKER PULLER): Trivial mitral, tricuspid and pulmonic insufficiency was noted on echo. No significant valve disease at needs to be followed. RENATO (obstructive sleep apnea) 07/18/2017 Overview (08/04/2023): DIAGNOSIS: Obstructive sleep apnea PROCEDURE PERFORMED: (Jenaro 07/22/23) Right hypoglossal nerve stimulator implantation Generator placement right chest wall Lead placement right intercostal muscle Obesity (BMI 30-39.9) 07/18/2017 Aortic root dilatation 07/18/2017 Assessment & Plan (07/18/2017 8:46 PM SINKER PULLER): A mildly enlarged aortic root was noted by echo, 4.1 centimeters, in the absence of valve disease or hypertension. Will need to be re-evaluate every few years to see if there is any progression. Resolved Problems Problem Noted Date Diagnosed Date Resolved Date Elevated BP without diagnosis of hypertension 06/24/19 19 12/22/2019 Diastolic dysfunction 07/18/20172023 Assessment & Plan (07/18/2017 8:45 PM SINKER PULLER): Patient's echo shows some diastolic dysfunction. This may be due to his obesity, or sleep apnea. He does have some edema, but no GALICIA to suggest any chronic diastolic heart failure. Diastolic dysfunction could lead to diastolic heart failure however. Encounters Date Type Department Care Team Description 01/01/2025 10:00 AM CDT Office Visit [facility] [address] [place] [address] Reese Corona MD Aortic root dilatation (Primary Dx); Coronary artery disease involving la posta coronary artery of la posta heart without angina pectoris; Systolic dysfunction from Last 3 Months Surgical History Surgery Date Site/Laterality Comments REPLACEMENT TOTAL KNEE 02/11/1999 - 03/12/1999 Bilateral APPENDECTOMY as a child CARDIAC CATHETERIZATION 03/14/2023 no intervention TONSILLECTOMY as a child LEG SURGERY 05/13/1941 - 06/12/1941 Right thigh surgery Medical History Medical History Date Comments Sinusitis Skin disorder Obesity Pneumonia Sleep apnea Gout Enlarged prostate Essential tremor Systolic dysfunction 12/29/2023 Family History Medical History Relation Name Comments Heart attack Father Alzheimer's disease Mother Anesthesia problems Neg Hx Malig Hypertension Neg Hx Malig Hyperthermia Neg Hx Pseudochol deficiency Neg Hx Relation Name Status Comments Father (Age 60) [place] , before he got to the ambulance Mother (Age 84) Chay's Other Uncles of heart attacks. Social History Tobacco Use Types Packs/Day Years Used Date Smoking Tobacco: Never Passive Smoke Exposure: Past Smokeless Tobacco: Never Tobacco Cessation:Counseling Given: Not Answered Alcohol Use Standard Drinks/Week Comments No 0 (1 standard drink = 0.6 oz pur e alcohol) AUDIT-C Answer Date Recorded Q1: How often do you have a drink containing alc ohol? Monthly or less 07/22/2023 Q2: How many drinks containi ng alcohol do you have on a typical day when you are drinking? 1 or 2 07/22/2023 Q3: How often do you have si x or more drinks on one occasion? Never 07/22/2023 Personal Safety Answer Date Recorded Have you ever been in or are you currently in a harmful physical or emotional relationship or is someone making you feel afraid or unsafe? Denies 07/22/2023 Sex and Gender Information Value Date Recorded Sex Assigned at Not on file Legal Sex Male 8:29 PM SINKER PULLER Gender Identity Male 12/10/2019 9:52 AM CDT Sexual Orientation Straight 12/10/2019 9: 52 AM CDT Obstetrics History Last Filed Vital Signs Vital Sign Reading Time Taken Comments Blood Pressure 108/72 01/01/2025 9:51 AM CDT Pulse 82 01/01/2025 9:51 AM CDT Temperature 36.9 C (98.4 F) 07/13/2024 12:21 PM SINKER PULLER Respiratory Rate 29 07/22/2023 3:30 PM SINKER PULLER Oxygen Saturation 96% 01/01/2025 9:51 AM CDT Inhaled Oxygen Concentration - - Weight 123.2 kg (271 lb 9.6 oz) 01/01/2025 9:51 AM CDT Height 185.4 cm (6' 1) 01/01/2025 9:51 AM CDT Body Mass Index 35.83 01/01/2025 9:51 AM CDT Plan of Treatment Health Maintenance Due Date Last Done Comments Depression Screening 1940 Hepatitis B Screening 1958 Pneumococcal vaccine 65+ (1 of 1 - PCV) 1990 Zoster Vaccine (1 of 2) 1990 Well Visit 65+ 2005 Fall Risk Assessment 07/22/2024 07/22/2023 Influenza Vaccine (#1) 2025 3, 03/13/2018, 06/13/2015 DTaP/Tdap/Td Vaccine (2 - Td or Tdap) 02/11/202706/2016 Medical Devices Implanted Type Area Prosthetics Technician Device Identifier Shelf Expiration Date Model / Serial / Lot Knee Bilateral : Knee [employer] Inspire 3 Electrode Cuff Tunnel [place] Lead Neurostimulator Sterile 4063 - [id number] - [id number] Implanted:Qty: 1 on 07/22/2023 by Tenzin Eason MD at [facility] Right: Neck [employer] 02/06/2026 4063 / [id number] / [employer] Lead Neurostimulator Sleep Apnea Thoracic Permanent Respiratory Sensing Inspire 43cm 4340 - [id number] - [id number] Implanted:Qty: 1 on 07/22/2023 by Tenzin Eason MD at [facility] Right: Chest [employer] 05/23/2026 4340 / [id number] / [employer] Inspire Generator 3028 - [id number] - [id number] Implanted:Qty: 1 on 07/22/2023 by Tenzin Eason MD at [facility] Right: Chest [employer] 05/02/2026 3028 / [id number] / [place] [address] [email or web address] LIFE MEDICARE MEDICARE MEDICARE FOR LIFE FOR LIFE MEDICARE Care Teams Food Mixer Relationship Specialty Start Date End Date Lukasz Goldman MD PCP - General Family Medicine 08/21/19
--- OUTSIDE RECORDS SUMMARY | 2025-01-25 11:22 | XMS_ITS | Continuity of Care Document ---
Author Name [facility] Organization [facility] Care Team Providers Care Enamel Pulverizer Name Role Phone [facility] Unavailable Unavailable Problems Combined list of problems from Department of [facility] and [facility] facilities. It does not include entries that were removed or entered in error. Problem Status Onset Date Problem Type Date of Resolution Comments Source HTN - Hypertension ([facility] [id number]) Active Condition [facility] Hyperlipidemia ([facility] [id number]) Active Condition [facility] Obstructive Sleep Apnea of Adult ([facility] [id number]) Active Condition [facility] Pain of left hand Active Condition [facility] Pain of right shoulder joint Active Condition [facility] Urge incontinence of urine Active Condition [facility] Medications Combined list of outpatient medications from Department of [facility] and [facility] Affairs facilities.Medications provided include 1) outpatient medications from the last 15 months, and 2) patient-reported medications. Medication Details Route Status Patient Instructions Prescription Expires Prescription Number Last Dispense Date Ordering Provider Order Date Order Qty Source ASPIRIN 81MG TAB,CHEWABL E CHEW AND SWALLOW ONE TABLET BY MOUTH ONCE A DAY ORAL ACTIVE CAGUITLA NAE B 2022 [facility] ATORVASTATI N CA 80MG TAB TAKE ONE-HALF TABLET BY MOUTH EVERY EVENING ORAL ACTIVE CAGUITLA NAE B 2022 [facility] CYANOCOBALA MIN 500MCG TAB TAKE ONE TABLET BY MOUTH ONCE A DAY ORAL ACTIVE CAGUITLA NAE B 2022 [facility] LOSARTAN POTASSIUM 100MG TAB TAKE ONE-HALF TABLET BY MOUTH ONCE A DAY ORAL ACTIVE CAGUITLA, NAE B 2022 [facility] OXYBUTYNIN CL 15MG TAB,SA TAKE ONE TABLET BY MOUTH ONCE A DAY ORAL ACTIVE CAGUITLA, NAE B 2022 [facility] SPIRONOLACT ONE 25MG TAB TAKE ONE TABLET BY MOUTH ONCE A DAY ORAL ACTIVE CAGUITLA, NAE B 2022 [facility] Immunizations Combined list of available immunizations from the Department of Defense and Veterans Affairs facilities. Immunization Series Date Given Administered By Site Reaction Lot Number CVX Code Drug Metaphysicist Status Comments Source INFLUENZA, UNSPECIFIED FORMULATION 2022 88 complet ed HISTORICA L INFORMATI ON - FROM PATIENT'S RECALL, [facility] COVID-19, mRNA, LNP-S, PF, 30 mcg/0.3 mL dose 2020 [employer] (PFR) Not Given COVID-19, mRNA, LNP-S, PF, 30 mcg/0.3 mL dose DoD Encounters Combined list of: 1) Encounters from [facility] facilities going backup to the last 18 months, not all [place] inpatient encounters are included; 2) Encounters from the Department of [facility] facilities going backup to 280 months. Location Location Details Encounter Type Encounter Number Reason For Visit Attending Provider ADM Date DC Date Status Disposition Source [address] [place] [address] David REMY ([facility]Opt ometry) OUTPATIENT [id number] Notes Entered by: HELIO CRESPO 17 Aug 2019 1333 ------- ------- ------- ------- -- Glasses Ordered HELIO CRESPO 08/16 Released w/o Limitations [address] [place] [address] David REMY ([facility])(O ptometr y) [facility] Outpatient Encounter [id number] 12/05 [facility] Outpatient Encounter [id number] 12/06 [facility] Procedures Combined list of: 1) Procedures from Department of [facility] facilities going back up to thelast 18 months, not all [place] non-surgical procedures are included; 2) All procedures from the Department of [facility] facilities. Procedure Procedure Type Code Date Perfomer Comments Sourc e FITTING OF SPECTACLES, EXCEPT FOR APHAKIA; MONOFOCAL 08/17/2019 [employer] Fitting Monofocals (Not For Aphakia) [employer] Fitting Monofocals (Not For Aphakia) [id number] HELIO CRESPO DoD Social History Combined list of available smoking, tobacco, and other social history from Department of Defense and Veterans Affairs facilities. Social History Type Response Date Comment [facility] e Tobacco smoking status [facility] NEVER USED 06/10/2023 [facility] This section is an empty social history section. DoD
[2025-01-25 12:34] LABS: Anion Gap 8 mmol/L (4-12); Blood Urea Nitrogen 26 mg/dL (9-20); Calcium 9.1 mg/dL (8.4-10.2); Carbon Dioxide 26 mmol/L (22-30); Chloride 104 mmol/L (98-107); Estimated Glomerular Filt Rate > 60; Glucose 97 mg/dL (65-110); Potassium 4.4 mmol/L (3.4-5.0); Sodium 138 mmol/L (137-145)
== END 2025-01-25 11:19 | disposition home or self-care (01) ==
PROVIDERS: Anesthesiology; PCP Family Medicine; Visit Provider Plastic Surgery
DX: Z51.81 Encounter for therapeutic drug level monitoring (principal); Z79.899 Other long term (current) drug therapy
CPT/HCPCS: 36415; 80048

== ENCOUNTER 2025-02-06 00:09 | Day surgery (SDC) | payer MEDICARE, OTHER, SELFPAY ==
[2025-01-23 08:47] VITALS: BMI 34.9
--- NOTE | 2025-01-23 09:20 | PC.NURSE ---
Addendum entered by Manasa William RN 01/25/25 09:17: CLARIFICATION- NO FOOD FROM MIDNIGHT UNTIL TIME OF SURGERY AND NO SMOKING, CHEWING GUM, CANDY OR MINTS. MAY HAVE CLEAR LIQUIDS (UP TO 20 OZ) FROM MIDNIGHT UNTIL 5:15AM. NOTHING TO EAT OR DRINK FROM 5:15AM UNTIL TIME OF SURGERY. Original Note: Report to the Outpatient Waiting Room, entrance under the green pavilion [facility], at time __11:15AM___ on date __02/06/25___. Planned Procedure Time: __1:15PM____.? Time changes happen often and if your time is changed the preop area will call you the afternoon before. - You and your visitor will be asked to self-screen and do not enter if you have any COVID symptoms. Please call surgeon if you need to reschedule. - A mask is optional within the hospital at this time. Patients may have clear liquids (water, carbonated beverages, clear teas, apple juice)with a maximum of 20 ounces FROM MIDNIGHT UNTIL 5:15AM PER ANESTHESIA. PER DR ROMERO, NO FOOD OR DRINK FOR 8 HRS PRE-OP (FROM 5:15AM until time of surgery) and no smoking, or chewing tobacco (or any form of nicotine). No chewing gum, candy or mints. Take only the following medications with a SIP of water on the morning of surgery: NONE DO NOT STOP ANY OF YOUR OTHER PRESCRIPTION MEDICATIONS PRIOR TO SURGERY EXCEPT THE FOLLOWING Hold all vitamins and supplements for 3 days per anesthesiologist- LAST DOSE 02/02/25. Medications to discontinue per physician __HOLD ASPIRIN PER DR ROMERO Date to take last dose Please no make-up, nail burundian, hairspray, perfume, deodorant, or body powder the day of surgery.? No jewelry (including any body piercings) or valuables the day of surgery, leave them at home.? Please take a shower or bath the night before, or the morning of, surgery with an antibacterial soap.? Wear comfortable, loose fitting clothing.? - Jewelry must be removed prior to entering the operating room.? Rings and piercings that are not removed may be cut off. - The hospital will not accept responsibility for valuables.? - Please leave all valuables, including medications, at home the day of surgery. If you are going home after surgery, a licensed cdl b driver must drive you home.? - NO public transportation without another adult if you receive anesthesia. - We recommend that an adult stay with you for 24 hours following discharge. - We also recommend that you do not drive, make important decision, drink alcoholic beverages, or take any drugs that were not prescribed by your health care provider for at least 24 hours after your discharge time. Follow any additional instructions given to you from your surgeon. Telephone instructions given to PATIENT and asked if any additional questions and then verbalized understanding. Patient advised to call surgeon office or pre surgery nurse liaison [phone] if any additional questions.
--- NOTE | 2025-02-06 07:01 | P.OP_ITS ---
Procedure Note - Detailed Date of Procedure 02/06/25 Pre-op Diagnosis Bilateral carpal and cubital tunnel syndrome Post-op Diagnosis Same Procedure Performed left ectr and CuTR Surgeon Meri Tripp MD [employer] cordelia gleason pa-c Anesthesia MAC Description of Procedure INFORMED CONSENT: The patient was seen and examined and marked in the pre-op area.? The patient signed the consent form. PROCEDURE IN DETAIL:The patient taken back to OR on the stretcher in supine position. Time out performed with anesthesia, surgeon and staff agreeing on patient's name site and surgery to be performed SCDs were placed on the lower extremities and inflated. A tourniquet was placed on {left} upper extremity and antibiotics given IV After anesthesia administered sedation I injected {10}cc 1%lido with epi and 0.5% marcaine plain at the operative sites The?{left upper extremity}?was prepped and draped in sterile fashion the??{left upper extremity} was? exsanguinated with Esmarch bandage and tourniquet inflated to 250mmHg I made a transverse incision in the {left} volar distal wrist crease through skin and dermis with 15 blade scalpel.? Littler scissors spread down to antebrachial fascia. A small incision was made in antebrachial fascia allowing access to Carpal tunnel. I proceeded with sequential dilation staying in line with the ring finger and hugging the hook of the hamate.? I then used the synovial elevator to free any adhesions from the underside of the transverse carpal ligament. Next I was able to insert the [employer] endoscopic carpal tunnel device with direct visualization of the transverse fibers on the monitor and proceeded with complete segmental retrograde release of the ligament in its entiret I next proceeded with making a longitudinal incision between two heads for flexor carpi ulnaris at end of {/left} cubital tunnel with 15 blade scalpel.? Littler scissors were used to spread down to FCU fascia.? An incision was made in FCU fascia and ulnar nerve identified exiting cubital tunnel.? I proceeded with complete retrograde release of the cubital tunnel including 7cm proximal for the intermuscular septum.? The nerve appeared healthy with visible vaso nervorum.? There was no subluxation on full elbow range of motion. ? I irrigated with normal saline and closure with 4-0 monocryl for dermis and subcuticular. The incisions were covered with Dermabond then 4x4s, tere, and a posterior elbow an volar wrist splint for patient safety, security and comfort and secured with tasneem bandages after the tourniquet was let down noting the hand was warm and well perfused.? Patient awaken from anesthesia and transferred to recovery in stable condition Complications - none EBL- 1cc Disposition - home in stable condition Cordelia Gleason PA-C was essential for positioning, retraction, closure and dressing placement [facility] Billing Surgery - Charge Forward: Surgery Billing ([id number] same for cordelia adding )
--- NOTE | 2025-02-06 07:01 | WPDHPUPDATE1 ---
History and Physical Update Update Date/Time: 02/06/25 07:01 Patient seen and examined in pre-operative holding area. No interval change in medical history or symptoms. Patient recalls previous discussion of benefits and alternatives to procedure. Continues to desire to proceed with left endoscopic possible open carpal tunnel release and left cubital tunnel release . Reviewed procedure, post-op expectations and risks including but not limited to bleeding, infection, injury to tendon/nerve/vessel, decreased hand function, stiffness, RSD, no change or worsening of symptoms. I discussed the possible use of assistants and their participation in the case. Patient stated understanding and signed the consent form wishing to proceed.
[2025-02-06 09:52] VITALS: BP 128/67; PULSE 58; RESP 18; TEMP 36.7; O2SAT 100
--- NOTE | 2025-02-06 10:31 | WPDANESEPPF ---
Anes - Initial Pre Proc Eval Procedure: Operation Date: 02/06/25 11:45 Proposed Procedures p Left Endoscopic Carpal Tunnel Release, Possible Open, Left Cubital Tunnel Release - Meri Tripp MD Date/Time: 02/06/25 10:31 Surgeon: Meri Tripp MD Pre Op Diagnosis: Bilateral carpal and cubital tunnel syndrome Patient Data Age: 84 Gender: M Height: 1.85 m Weight: 123.4 kg Allergies Allergy/AdvReac Type Severity Reaction Status Date / Time No Known Allergies Allergy Verified 01/28/25 13:02 Home Medications ?Medication ?Instructions ?Recorded ?Confirmed ?Type atorvastatin 40 mg tablet 40 mg PO DAILY 05/15/19 01/23/25 History mecobalamin (vitamin B12) 5,000 5,000 mcg PO DAILY 07/23/21 01/23/25 History mcg disintegrating tablet losartan 50 mg tablet 50 mg PO DAILY #30 tabs 02/23/23 01/23/25 Rx spironolactone 25 mg tablet 25 mg PO DAILY #30 tabs 02/23/23 01/23/25 Rx aspirin 81 mg tablet,delayed 81 mg PO DAILY 01/23/25 01/23/25 History release (Adult Low Dose Aspirin) Patient hx anesthesia problems: none Family hx anesthesia problems: none Results Review: All pre-operative results and documents have been reviewed as part of the pre-operative evaluation. [facility] Past Medical History Medical History SOB (shortness of breath) Solitary lung nodule CAD (coronary artery disease) Cardiomyopathy Dilated aortic root BMI 33.0-33.9,adult Tachycardia BMI 34.0-34.9,adult Cellulitis Cough Rhinitis Numbness and tingling in both hands Benign localized prostatic hyperplasia with lower urinary tract symptoms (LUTS) Chronic venous insufficiency Diastolic dysfunction Heart murmur Intention tremor Mixed hyperlipidemia RENATO (obstructive sleep apnea) Surgical History Surgical History History of appendectomy History of bilateral knee replacement Family History Family History Sibling Patient's brother is in good health Family history of malignant neoplasm of breast in first degree relative Breast cancer Father Acute myocardial infarction, Onset Age: 60 Mother Family history of Alzheimer's disease, Onset Age: 80 Acute myocardial infarction Social History Social History Social History: Caffeine-soda/coffee Smoking status: Never smoker Second hand tobacco smoke exposure: Yes Alcohol intake: current Alcohol use details: 1 beer/month Substance use: never Substance use type: does not use Lack of Transportation: No Lack of Food: Never True Current Housing: I Have Housing Concerned About Future Housing: No Difficulty Paying Gas/Electric Bills: YES Difficulty Paying for Meds: No Currently Unemployed: No Education: Associate Degree Difficulty w/ Childcare or Family Care: No Living arrangements: with family Additional living arrangements comments: Occupation/Education: retired Additional occupation/education comments: [employer] Gender identity (if verbalized by the patient): Male Spiritual care concerns: No Anes - Eval Final PreProcedure Day of Procedure 02/06/25 10:31 Patient weight: obese Heart: regular rate and rhythm Lungs: decreased breath sounds Airway: Mallampati scale class III Neurological: alert and oriented Last oral intake: >/= 8 hours ASA classification: III Emergent: no Anesthetic plan: proceed Anesthesia type and monitoring: general GIVS and standard monitoring Results Review: All pre-operative results and documents have been reviewed as part of the pre-operative evaluation. Informed Consent: The patient's anesthetic plan and its attendant risks and benefits were discussed with the patient/family/POA. Questions were solicited and answers provided to the satisfaction of the patient/family/POA.
[2025-02-06] MEDS: LACTATED RINGERS 1,000 ML 30 ML IV CONT (10:41)
[2025-02-06] MEDS: ACETAMINOPHEN 500 MG TABLET 1000 MG PO (11:23)
[2025-02-06] MEDS: ceFAZolin 3 GM/D5W 100 ML 100 ML IVPB (11:32)
[2025-02-06] MEDS: LIDO 1%/EPINEPHRINE 1:100,000 20 ML VIAL 10 ML INFILTRATE (11:47)
[2025-02-06 12:10] VITALS: BP 121/64; PULSE 49; RESP 14; O2SAT 96
[2025-02-06 12:40] VITALS: BP 110/72; PULSE 56; RESP 14; O2SAT 100
[2025-02-06 13:10] VITALS: BP 132/60; PULSE 51; RESP 14
== END 2025-02-06 13:27 | disposition home or self-care (01) ==
PROVIDERS: PCP Family Medicine; Visit Provider Plastic Surgery
PROC: 01N54ZZ Release Median Nerve, Percutaneous Endoscopic Approach (ICD-10-PCS; CPT 29848; principal; 2025-02-06 11:45)
DX: G56.02 Carpal tunnel syndrome, left upper limb (principal); G56.22 Lesion of ulnar nerve, left upper limb; E78.2 Mixed hyperlipidemia; G47.33 Obstructive sleep apnea (adult) (pediatric); I25.10 Atherosclerotic heart disease of native coronary artery without angina pectoris; N40.1 Benign prostatic hyperplasia with lower urinary tract symptoms; I87.2 Venous insufficiency (chronic) (peripheral); I50.30 Unspecified diastolic (congestive) heart failure; R01.1 Cardiac murmur, unspecified; G25.2 Other specified forms of tremor; E66.9 Obesity, unspecified; Z68.35 Body mass index [BMI] 35.0-35.9, adult; Z79.82 Long term (current) use of aspirin; Z98.890 Other specified postprocedural states; Z80.3 Family history of malignant neoplasm of breast; Z82.49 Family history of ischemic heart disease and other diseases of the circulatory system
CPT/HCPCS: 64718; 29848; A9270; J0690; J2004; J2704; J7120